=== PATIENT | female | born 1990 ===

== ENCOUNTER → 2018-11-23 | Outpatient (CLI) | payer OTHER ==
[2018-11-25 03:12] LABS: CHLAMYDIA TRACHOMATIS, NAA Negative (Negative); NEISSERIA GONORRHOEAE, NAA Negative (Negative)
== END ==
LOC: LAB 17:58 → LAB SHORT 17:58
PROVIDERS: Registered Nurse Community Health
DX: Z11.3 Encounter for screening for infections with a predominantly sexual mode of transmission (principal)
CPT/HCPCS: 87491; 87591